=== PATIENT | male | born 1995 | race Caucasian/White ===

== ENCOUNTER 2017-02-25 02:26 | Emergency (ER) | payer MEDICAID ==
--- NOTE | 2017-02-25 02:34 | EDPHY ---
H & P Stated Complaint: L knee pain s/p skateboarding accident HPI/ROS: Chief Complaint: LEFT KNEE PAIN HPI: 22-year-old male was long boarding down [facility] when he attempted to negotiate up a curb in a crosswalk and came off his board. Patient states that he twisted his left knee. Did not have a direct blow or land on his knee. Had onset of severe pain. Has not been weight-bearing since. Patient received fentanyl and Zofran from EMS. Denies prior injuries to that knee. He does admit to drinking several drinks of alcohol this morning. ROS: 10 point Review of Systems is negative except as noted in the HPI. PMH: Left shoulder surgery Social History: No smoking, positive alcohol, occasional marijuana Family History: non-contributory Physical Exam: Gen: Awake, Alert, No Distress HEENT: Nose: no rhinorrhea Eyes: PERRLA, EOMI Mouth: Moist mucosa Neck: Supple, no JVD Chest: nontender, lungs clear to auscultation Heart: S1, S2 normal, no murmur Abd: Soft, non-tender, no guarding Back: no CVA tenderness, no midline tenderness Ext: no edema, no bony focal tenderness. No tenderness on the medial lateral collateral ligaments. He is able to bend past 90 and fully extend. He does have pain in the medial knee with loading of the medial meniscus. Negative anterior drawer sign Skin: no rash Neuro: CN II-XII intact, Sensation grossly intact, Strength 5/5 in bilateral upper and lower extremities - Personal History Current Tetanus Diphtheria and Acellular Pertussis (TDAP): Yes - Medical/Surgical History Hx Asthma: No Hx Chronic Respiratory Disease: No Hx Diabetes: No Hx Cardiac Disease: No Hx Renal Disease: No Hx Cirrhosis: No Hx Alcoholism: No Hx HIV/AIDS: No Hx Splenectomy or Spleen Trauma: No Other PMH: clavicle - Social History Smoking Status: Light smoker Constitutional: Initial Vital Signs Temperature (C) 36.8 C 02/25/17 02:28 Heart Rate 84 02/25/17 02:28 Respiratory Rate 16 02/25/17 02:28 Blood Pressure 142/85 H 02/25/17 02:28 O2 Sat (%) 99 02/25/17 02:28 O2 Delivery Mode Room Air Allergies/Adverse Reactions: No Known Allergies Allergy (Unverified 02/25/17 02:28) Home Medications: Medication Instructions Recorded Flexeril 02/25/17 Medical Decision Making - Diagnostics Imaging Results: Left knee x-ray is no acute fracture per my interpretation. Imaging: I viewed and interpreted images myself ED Course/Re-evaluation: 22-year-old male with left knee injury, likely left medial meniscal injury. No acute findings on his x-ray. Patient has been placed in knee immobilizer and given crutches. He will follow up with Orthopedics. Departure - Departure Disposition: Home, Routine, Self-Care Clinical Impression: Knee sprain Condition: Good Instructions: Knee Sprain (ED), Knee Immobilizer (ED), Crutch Instructions (ED) Additional Instructions: He may alternate ibuprofen with acetaminophen every 3-4 hours as needed for pain. Apply ice for 15 minutes of every hour while awake for the next 2 days. Follow up with Orthopedics in 4 5 days for re-evaluation. Referrals: Donell Sandoval MD [Medical Doctor] - As per Instructions
[2017-02-25 02:58] VITALS: BP 142/85; TEMP 98.2
[2017-02-25 03:34] VITALS: PULSE 80; RESP 15; O2SAT 96
== END 2017-02-25 03:26 | disposition home or self-care (01) ==
LOC: EDUNIT#
DX: S83.92XA Sprain of unspecified site of left knee, initial encounter (principal); F17.200 Nicotine dependence, unspecified, uncomplicated; V00.138A Other skateboard accident, initial encounter; Y92.410 Unspecified street and highway as the place of occurrence of the external cause; Y99.8 Other external cause status; Y93.51 Activity, roller skating (inline) and skateboarding
CPT/HCPCS: L1830

== ENCOUNTER 2019-01-23 03:11 | Emergency (ER) | payer MEDICAID ==
[2019-01-23 03:18] VITALS: BP 134/83
[2019-01-23] MEDS ORDERED: IBUPROFEN 200 MG TAB PO ONE (03:34)
[2019-01-23] MEDS ORDERED: ACETAMINOPHEN 500 MG TAB PO ONE (03:34)
--- NOTE | 2019-01-23 03:58 | EDPHY ---
H & P Stated Complaint: L KNEE PAIN/SKATEBOARDING Time Seen by Provider: 01/23/19 03:30 HPI/ROS: HPI: The patient presents with left knee pain which has been present for the last several hours. Patient had been drinking alcohol tonight, was skateboarding on a long board when he fell off of it forward, with his anterior left knee hitting a patch of wood chips. He has been able to ambulate, however it is painful to do so. He does not have any breaks in the skin. He has history of left knee ligamentous injury requiring orthopedic repair in [place]. REVIEW OF SYSTEMS 10 systems were reviewed and negative with the exception of the elements mentioned in the history of present illness. PMHx: Prior injury to left knee TRAUMA PHYSICAL General Appearance: Alert, no distress Head: Atraumatic Respiratory: Breathing comfortably Cardiovascular: Regular rate and rhythm Extremities: Left knee with no obvious effusion, there is tenderness anteriorly diffusely, there is full range of motion of the joint, there is no laxity of the joint, however difficult to assess secondary to patient's pain Neurological: A&Ox3, GCS=15,normal motor function with 5/5 strength in all 4 extremities, normal sensory exam Source: Patient Exam Limitations: No limitations - Personal History Current Tetanus Diphtheria and Acellular Pertussis (TDAP): Yes - Medical/Surgical History Hx Asthma: No Hx Chronic Respiratory Disease: No Hx Diabetes: No Hx Cardiac Disease: No Hx Renal Disease: No Hx Cirrhosis: No Hx Alcoholism: No Hx HIV/AIDS: No Hx Splenectomy or Spleen Trauma: No Other PMH: clavicle, TORN L MINISCUS - Social History Smoking Status: Current every day smoker Constitutional: Initial Vital Signs Temperature (C) 37.2 C 01/23/19 03:16 Heart Rate 127 H 01/23/19 03:16 Respiratory Rate 16 01/23/19 03:16 Blood Pressure 134/83 H 01/23/19 03:16 O2 Sat (%) 93 01/23/19 03:16 O2 Delivery Mode Room Air Allergies/Adverse Reactions: No Known Allergies Allergy (Verified 01/23/19 03:16) Home Medications: Medication Instructions Recorded NK [No Known Home Meds] 01/23/19 Medical Decision Making Differential Diagnosis: 24-year-old male presents with skateboarding injury while intoxicated just prior to arrival, now with left knee pain though ambulatory. He is given ibuprofen and Tylenol. X-ray of knee is unremarkable though there is indication of prior surgical repair. Suspect that he could have recurrent ligamentous injury verses knee sprain. Will treat with Herberth wrap, elevation, crutches. He is neurovascularly intact. - Data Points Medications Given: Discontinued Medications Acetaminophen (Tylenol) 1,000 mg PO EDNOW ONE Stop: 01/23/19 03:35 Last Admin: 01/23/19 03:39 Dose: 1,000 mg Ibuprofen (Motrin) 400 mg PO EDNOW ONE Stop: 01/23/19 03:35 Last Admin: 01/23/19 03:39 Dose: 400 mg Departure - Departure Disposition: Home, Routine, Self-Care Clinical Impression: Strain of left knee Qualifiers: Encounter type: initial encounter Qualified Code(s): S86.912A - Strain of unspecified muscle(s) and tendon(s) at lower leg level, left leg, initial encounter Condition: Good Instructions: Knee Sprain (ED), R.I.C.E. Treatment (ED) Additional Instructions: Please use ibuprofen and Tylenol as needed for pain. You should keep the Herberth wrap on at all times and elevate your leg as much as possible. If you continue to have pain for more than 1-2 days, I would like for you to follow up with the orthopedist. You can follow up with your primary orthopedist or see Dr. Ndiaye. His phone number as listed below. Referrals: Oscar Ndiaye MD [Medical Doctor] - As per Instructions
== END 2019-01-23 04:15 | disposition home or self-care (01) ==
DX: S86.912A Strain of unspecified muscle(s) and tendon(s) at lower leg level, left leg, initial encounter (principal); F10.129 Alcohol abuse with intoxication, unspecified; V00.131A Fall from skateboard, initial encounter; Y92.480 Sidewalk as the place of occurrence of the external cause; Y93.51 Activity, roller skating (inline) and skateboarding

== ENCOUNTER → 2019-02-05 | Outpatient (CLI) | payer MEDICAID | LOC: FIMAGING 13:43 | PROVIDERS: ATTEND Registered Nurse | DX: S83.282A Other tear of lateral meniscus, current injury, left knee, initial encounter (principal); S83.242A Other tear of medial meniscus, current injury, left knee, initial encounter ==